=== PATIENT | female | born 2000 | race Caucasian/White ===

== ENCOUNTER 2019-06-26 20:28 | Emergency (ER) | payer MEDICAID ==
[~2019-06-26] VITALS: Ht 142.2 cm; Wt 49.3 kg
[2019-06-26 21:25] LABS: CLARITY URINE TURBID (CLEAR); COLOR URINE YELLOW (YELLOW); KETONES URINE NEGATIVE (NEGATIVE); LEUKOCYTE ESTERASE URINE 3+ (NEGATIVE); NITRITE URINE NEGATIVE (NEGATIVE); OCCULT BLOOD URINE 3+ (NEGATIVE); PH URINE 5.5 (4.5-8.0); PROTEIN URINE 2+ (NEGATIVE); UROBILINOGEN URINE 0.2 E.U./dL (0.2-1.0)
[2019-06-26 21:54] VITALS: BP 109/59
== END 2019-06-26 21:55 | disposition home or self-care (01) ==
LOC: ER 20:28
DX: N39.0 Urinary tract infection, site not specified (principal)
CPT/HCPCS: 81003; 81025; 99283